=== PATIENT | female | born 1965 | race African-American/Black ===

== ENCOUNTER 2017-06-08 10:40 | Inpatient (IN) | payer OTHER ==
[2017-06-08 11:00] VITALS: BMI 29.2
--- NOTE | 2017-06-08 13:04 | HP ---
COWS - Scale Resting Pulse: 1= [place] 81-100 Sweatin= Chills/Flushing Restless Observation: 0= Sits Still Pupil Size: 2= Moderately Dilated Bone or Joint Aches: 4=Acute Joint/Muscle Pain Runny Nose/ Eye Tearin= Nasal Congestion GI Upset > 30mins: 1= Stomach Cramp Tremor Observation: 2= Slight Tremor Visible Yawning Observation: 1= 1-2x During Session Anxiety or Irritability: 2=Irritable/Anxious Goose Flesh Skin: 0=Smooth Skin COWS Score: 15 Admission ROS S - HPI Chief Complaint: DETOX TX FOR TRAMADOL, FIORICET/W CODIENE DEPENDENCE. STATES "I DON'T WANT MY LIFE TO CONTINUE THIS WAY". Allergies/Adverse Reactions: Allergies Allergy/AdvReac Type Severity Reaction Status Date / Time No Known Allergies Allergy Verified 06/08/17 12:14 History of Present Illness: 51 Y/O WOMAN WITH A HX OF TRAMADOL, FIORICET WITH CODEINE DEPENDENCE SEEKING DETOX TX. PT STATES USE OF FIORICET X 10 YRS AND FIORICET WITH CODIENE FOR PAST 8 YRS FOR MIGRAINE HEADACHE BUT FOUND HERSELF MORE DEPENDENT ON THESE WITH NO RELIEF. RATHER, EXPERIENCING INCREASED, TIREDNESS, HOT/COLD CHILLS, RESTLESSNESS AND URGE TO CONTINUE USING IT. Exam Limitations: No Limitations - Ebola screening Have you traveled outside of the country in the last 21 days: No Have you had contact with anyone from an Ebola affected area: No Have you been sick,other than usual withdrawal symptoms: No Do you have a fever: No - Review of Systems Constitutional: Chills, Diaphoresis, Loss of Appetite, Night Sweats, Changes in sleep EENT: reports: Blurred Vision, Tearing, Nose Congestion Respiratory: reports: No Symptoms reported Cardiac: reports: Chest Pain, Lightheadedness, Palpitations, Chest Tightness GI: reports: Constipated, Diarrhea, Nausea, Vomiting, Indigestion, Abdominal cramping : reports: No Symptoms Reported Musculoskeletal: reports: Back Pain, Joint Pain, Muscle Pain Integumentary: reports: No Symptoms Reported Neuro: reports: Headache (HX MIGRAINES), Tremors, Dizziness Endocrine: reports: No Symptoms Reported Hematology: reports: Anemia (RESOLVED AFTER RADIO FREQUENCY ABLATION) Psychiatric: reports: Orientated x3, Anxious, Depressed Other Systems: Reviewed and Negative Patient History - Patient Medical History Hx Anemia: Yes (NO MEDS) Hx Asthma: No Hx Chronic Obstructive Pulmonary Disease (COPD): No Hx Cardiac Disorders: No Hx Hypertension: No Hx Hypercholesterolemia: Yes (ON/OFF ON SIMVASTATIN) HX Cerebrovascular Accident: No Hx Seizures: No Hx Diabetes: No Hx Gastrointestinal Disorders: Yes (DYSPEPSIA SOMETIMES) Hx Genitourinary Disorders: No Hx Sexually Transmitted Disorders: No Hx Renal Disease (ESRD): No Hx Thyroid Disease: No Hx Human Immunodeficiency Virus (HIV): No (NEGATIVE HX) Hx Hepatitis C: No Hx Depression: Yes (ON MED) Hx Suicide Attempt: No (DENIES) Hx Schizophrenia: No Other Medical History: HX THROAT POLYP - Patient Surgical History Past Surgical History: Yes Hx Abdominal Surgery: Yes (fibroid sx in 2009 radiofrequency ablation) Hx Section: No Hx Hysterectomy: No Other Surgical History: Rectal sx in 2010 - PPD History Previous Implant?: Yes Documented Results: Positive w/o proof Implanted On Prior [facility] Admission?: No - Reproductive History Last Menstrual Period: 06/01/17 Patient : No - Smoking Cessation Smoking history: Never smoked - Substance & Tx. History Hx Alcohol Use: No (DENIES) Hx Substance Use: Yes (TRAMADOL/CODEINE) Substance Use Type: Opiates Hx Substance Use Treatment: No (DENIES) - Substances Abused FIORCET WITH CODEINE Route: Oral Frequency: Daily Amount used: 6 PILLS Age of first use: 41 Date of Last Use: 06/08/17 TRAMADOL Route: Oral Frequency: Daily Amount used: 6 PILLS Age of first use: 41 Date of Last Use: 06/08/17 Family Disease History - Family Disease History Family Disease History: Diabetes: Mother (BORDERLINE DM;CANCER SURVIVOR-ALIVE), CA: Father (CANCER SURVIVOR), Mother, Other: Sister (HTN) Admission Physical Exam BHS - Vital Signs Vital Signs: Vital Signs - 24 hr 06/08/17 10:56 Temperature 97.8 F Pulse Rate 96 H Respiratory 18 Rate Blood Pressure 135/87 - Physical General Appearance: Yes: Moderate Distress, Irritable, Anxious HEENTM: Yes: EOMI, Normocephalic, MICHAEL, Pharynx Normal Respiratory: Yes: Chest Non-Tender, Lungs Clear, Normal Breath Sounds, No Respiratory Distress Neck: Yes: No masses,lesions,Nodules, Supple, Trachea in good position Breast: Yes: Breast Exam Deferred Cardiology: Yes: Regular Rhythm, Regular Rate, S1, S2 Abdominal: Yes: Normal Bowel Sounds, Non Tender, Soft Genitourinary: Yes: Other (N/C) Back: Yes: Within Normal Limits Musculoskeletal: Yes: full range of Motion, Gait Steady Extremities: Yes: Normal Range of Motion, Non-Tender Neurological: Yes: final application reviewer II-XII NML intact, Fully Oriented, Alert Integumentary: Yes: Dry, Warm Lymphatic: Yes: Within Normal Limits - Diagnostic (1) Opioid dependence with withdrawal Current Visit: Yes Status: Acute (2) Arthritis of knee, degenerative Current Visit: Yes Status: Chronic Qualifiers: Osteoarthritis type: unspecified (3) History of migraine headaches Current Visit: Yes Status: Chronic (4) Hypercholesterolemia Current Visit: Yes Status: Chronic Cleared for Admission [facility] - Detox or Rehab [facility] Level of Care: Medically Managed Detox Regimen/Protocol: Methadone [facility] Breath Alcohol Content Breath Alcohol Content: 0 Urine Pregancy Test - Result Urine Test Results: Negative- NO Line Present Urine Drug Screen - Results Drug Screen Negative: No Urine Drug Screen Results: OPI-Opiates, BAR-Barbiturates
[2017-06-08] MEDS ORDERED: MAGNESIUM CITRATE 300 ML BOTTLE PO PRN (13:37)
[2017-06-08] MEDS ORDERED: MAG HYDROX/AL HYDROX/SIMETH 30 ML UNIT-DOSE CUP PO PRN (13:37)
[2017-06-08] MEDS ORDERED: MENTHOL/PHENOL 1 EACH UD MM PRN (13:37)
[2017-06-08] MEDS ORDERED: P-EPHED 60MG/TRIPROLIDI 2.5MG TABLET PO PRN (13:37)
[2017-06-08] MEDS ORDERED: guaiFENesin/D-METHORPHAN HB 10 ML UNIT-DOSE CUPS PO PRN (13:37)
[2017-06-08] MEDS ORDERED: LOPERAMIDE HCL 2 MG CAPSULE PO PRN (13:37)
[2017-06-08] MEDS ORDERED: MAGNESIUM HYDROX 2400MG/30ML ORAL SUSPENSION 30 ML CUP PO PRN (13:37)
[2017-06-08] MEDS ORDERED: METHADONE HCL 10 MG TABLET (FOR DETOX USE ONLY) PO ONE ×2 (14:07→23:00)
--- NOTE | 2017-06-08 14:44 | CONSULT ---
[facility] Psychiatric Consult - Data Date of interview: 06/08/17 Admission source: [facility] Identifying data: This is 51 years old female with psychiatric hospitalization history intoxicated withy Opioids Substance Abuse History: Drug Screen Negative: No. Urine Drug Screen Results: OPI-Opiates, BAR-Barbiturates- Smoking Cessation. Smoking history: Never smoked. - Substance & Tx. History. Hx Alcohol Use: No (DENIES). Hx Substance Use: Yes (TRAMADOL/CODEINE). Substance Use Type: Opiates. Hx Substance Use Treatment: No (DENIES). - Substances Abused. FIORCET WITH CODEINE. Route: Oral. Frequency: Daily. Amount used: 6 PILLS. Age of first use: 41. Date of Last Use: 06/08/17. TRAMADOL. Route: Oral. Frequency: Daily. Amount used : 6 PILLS. Age of first use: 41. Date of Last Use: 06/08/17 Medical History: Migraine, Knee arthritis, Hyper cholesterolemia Psychiatric History: Patient reports history of anxiety and depression, reports only psychiatric admission on morem then 10 uyears ago, reports taking priorm to admission: Zoloft 200mg poqd Physical/Sexual Abuse/Trauma History: Denies Additional Comment: Drug Screen Negative: No. Urine Drug Screen Results: OPI- Opiates, BAR-Barbiturates Mental Status Exam - Mental Status Exam Alert and Oriented to: Person Cognitive Function: Fair Patient Appearance: Unkempt Mood: Apprehensive Affect: Mood Congruent Patient Behavior: Cooperative Speech Pattern: Delayed Voice Loudness: Normal Thought Process: Goal Oriented Thought Disorder: Being Controlled Hallucinations: Denies Suicidal Ideation: Denies Homicidal Ideation: Denies Insight/Judgement: Fair Sleep: Difficulty falling asleep Appetite: Weight gain Muscle strength/Tone: Normal Gait/Station: Normal Additional Comments: Zoloft 200mg poqd Psychiatric Findings - Problem List ([place] 1, 2,3) (1) Opioid dependence with withdrawal Current Visit: Yes Status: Acute (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
[2017-06-08] MEDS: diazePAM 5 MG TABLET PO PRN ×2 (15:21→22:37)
[2017-06-08 17:04] LABS: URINE APPEARANCE CLEAR; URINE BILIRUBIN NEGATIVE (NEGATIVE); URINE BLOOD 1+ (NEGATIVE); URINE COLOR STRAW; URINE GLUCOSE (UA) NEGATIVE (NEGATIVE); URINE KETONE NEGATIVE (NEGATIVE); URINE LEUK ESTERASE NEGATIVE (NEGATIVE); URINE NITRITE NEGATIVE (NEGATIVE); URINE PROTEIN NEGATIVE (NEGATIVE); URINE UROBILINOGEN NEGATIVE mg/dL (0.2-1.0)
[2017-06-08 17:09] LABS: URINE BACTERIA RARE /hpf (NONE SEEN); URINE RBC <1 /hpf (0-3); URINE WBC <1 /hpf (3-5)
[2017-06-08] MEDS: ACETAMINOPHEN 325 MG TABLET (FP) PO PRN (17:36)
[2017-06-08] MEDS: SUMAtriptan SUCCINATE 50 MG TABLET PO PRN (21:25)
[2017-06-08] MEDS ORDERED: ATORVASTATIN CA 20 MG TABLET (FP) PO SCH (22:00)
[2017-06-08] MEDS: THIAMINE HCL 100 MG TABLET (FP) PO SCH (22:37)
[2017-06-08] MEDS: diphenhydrAMINE HCL 50 MG CAPSULE PO PRN (22:37)
[2017-06-08] MEDS: ATORVASTATIN CA 10 MG TABLET (FP) PO SCH (22:37)
[2017-06-09] MEDS: ACETAMINOPHEN 325 MG TABLET (FP) PO PRN ×3 (05:46→22:29)
[2017-06-09] MEDS: diazePAM 5 MG TABLET PO PRN ×3 (05:49→20:40)
--- NOTE | 2017-06-09 08:44 | PN ---
[facility] Progress Note Note: Psychiatry Attending's note (coverage) : Met with patient on 06/08/17 to discuss medications. Nurse had called to request order for zoloft 200 mg/daily. Chart reviewed.Dr Cm's note is appreciated. Treatment plan confirms intent to restart zoloft at dose indicated above. Side effects/benefits were discussed with the patient (in the presence of a female staff). Ms Herr endorses consistent adherence to her medications.Seems reliable. Recent pharmacy claims are revisited. Noted script for zoloft 100 mg po bid (filled on 05/15/17 at [facility] # [id number]). Intervention : zoloft 100 mg po bid (patient's request).Ordered.
[2017-06-09] MEDS ORDERED: METHADONE HCL 10 MG TABLET (FOR DETOX USE ONLY) PO ONE (10:00)
[2017-06-09 10:27] LABS: MCH 27.9 pg (25.7-33.7); MCHC 33.1 g/dl (32.0-36.0); MEAN CELL VOLUME 84.3 fl (80-96); MEAN PLT VOLUME 9.9 fl (7.5-11.1); PLATELET COUNT 169 K/MM3 (134-434); RDW 14.3 % (11.6-15.6); WHITE BLOOD COUNT 4.4 K/mm3 (4.0-10.0)
[2017-06-09] MEDS: SERTRALINE HCL 50 MG TABLET (FP) PO SCH ×2 (11:05→22:29)
[2017-06-09] MEDS: PRENATAL VITAMINS W/ FOLIC ACID TABLET (FP) PO SCH (11:05)
--- NOTE | 2017-06-09 11:27 | PN ---
[facility] COWS - Scale Resting Pulse: 1= AR 81-100 Sweatin=Flushed/Facial Moisture Restless Observation: 1= Difficult to Sit Still Pupil Size: 0= Normal to Room Light Bone or Joint Aches: 2= Severe Diffuse Aches Runny Nose/ Eye Tearin= Nasal Congestion GI Upset > 30mins: 0= None Tremor Observation of Outstretched Hands: 1= Tremor Thomas, Not Seen Yawning Observation: 1= 1-2x During Session Anxiety or Irritability: 1=Feels Anxious/Irritable Goose Flesh Skin: 3=Piloerection COWS Score: 13 BHS Progress Note (SOAP) Subjective: sweats mild shakes interrupted sleep agitation Objective: 06/09/17 11:25 Vital Signs Temperature 98.2 F 06/09/17 10:00 Pulse Rate 90 06/09/17 10:00 Respiratory Rate 18 06/09/17 10:00 Blood Pressure 125/85 06/09/17 10:00 O2 Sat by Pulse Oximetry (%) Laboratory Tests 06/08/17 06/09/17 14:00 06:30 WBC 4.4 RBC 4.62 Hgb 12.9 Hct 38.9 MCV 84.3 MCH 27.9 MCHC 33.1 RDW 14.3 Plt Count 169 MPV 9.9 Urine Color Straw Urine Appearance Clear Urine pH 5.0 Ur Specific [place] <= 1.005 Urine Protein Negative Urine Glucose (UA) Negative Urine Ketones Negative Urine Blood 1+ H Urine Nitrite Negative Urine Bilirubin Negative Urine Urobilinogen Negative Ur Leukocyte Esterase Negative Urine RBC <1 Urine WBC <1 Ur Epithelial Cells Rare Urine Bacteria Rare labs pending awake/alert ambulating no acute distress Assessment: 06/09/17 11:26 withdrawal sx Plan: continue detox increase fluids labs pending
[2017-06-09 11:44] LABS: ALBUMIN 3.2 g/dl (3.4-5.0); ALK PHOS 76 U/L (45-117); ANION GAP 5 (8-16); BILIRUBIN,TOTAL 0.2 mg/dL (0.2-1.0); CALCIUM 8.6 mg/dL (8.5-10.1); CO2 32 mmol/L (21-32); CREATININE 0.8 mg/dL (0.55-1.02); GLUCOSE,RANDOM 79 mg/dL (74-106); SGOT/AST 24 U/L (15-37); SGPT/ALT 39 U/L (12-78); TOT PROT 6.8 g/dl (6.4-8.2)
[2017-06-09] MEDS: IBUPROFEN 400 MG TABLET (FP) PO PRN ×2 (12:46→20:38)
--- NOTE | 2017-06-09 14:24 | EKG ---
Test Reason : Blood Pressure : / mmHG Vent. Rate : 071 BPM Atrial Rate : 071 BPM P-R Int : 154 ms QRS Dur : 086 ms QT Int : 380 ms P-R-T Axes : 059 019 008 degrees QTc Int : 412 ms NORMAL SINUS RHYTHM NORMAL ECG NO PREVIOUS ECGS AVAILABLE REPEAT EKG IF CLINICALLY INDICATED Confirmed by JN MATHUR MD ([id number]) on 06/09/2017 2:24:03 PM Referred By: Timmy Pantoja Confirmed By:JN MATHUR MD
[2017-06-09 14:42] LABS: SICKLE CELL SCREEN NEGATIVE (NEGATIVE)
[2017-06-09] MEDS: SUMAtriptan SUCCINATE 50 MG TABLET PO PRN (14:42)
--- NOTE | 2017-06-09 16:43 | PN ---
B[facility] Progress Note Note: migraine headache will give imitrex 50 mgs po
[2017-06-09] MEDS ORDERED: SUMAtriptan SUCCINATE 50 MG TABLET PO ONE (16:45)
[2017-06-09] MEDS: diphenhydrAMINE HCL 50 MG CAPSULE PO PRN (22:28)
[2017-06-09] MEDS: THIAMINE HCL 100 MG TABLET (FP) PO SCH (22:29)
[2017-06-09] MEDS: ATORVASTATIN CA 10 MG TABLET (FP) PO SCH (22:29)
[2017-06-10] MEDS: IBUPROFEN 400 MG TABLET (FP) PO PRN (04:58)
[2017-06-10] MEDS: ACETAMINOPHEN 325 MG TABLET (FP) PO PRN ×3 (08:21→20:27)
[2017-06-10] MEDS ORDERED: cloNIDine HCL 0.1 MG TABLET PO ONE ×2 (09:57→11:27)
[2017-06-10] MEDS ORDERED: TRIMETHOBENZAMIDE HCL 300 MG CAPSULE PO PRN (09:57)
[2017-06-10] MEDS ORDERED: METHADONE HCL 5 MG TABLET (FOR DETOX USE ONLY) PO ONE (10:00)
[2017-06-10] MEDS: diazePAM 5 MG TABLET PO PRN ×3 (10:06→22:29)
[2017-06-10] MEDS: PRENATAL VITAMINS W/ FOLIC ACID TABLET (FP) PO SCH (10:07)
[2017-06-10] MEDS: SERTRALINE HCL 50 MG TABLET (FP) PO SCH ×2 (10:07→22:27)
[2017-06-10] MEDS: IBUPROFEN 600 MG TABLET (FP) PO PRN ×2 (10:12→16:33)
--- NOTE | 2017-06-10 11:18 | PN ---
[facility] COWS - Scale Resting Pulse: 2= ID [id number] Sweatin=Flushed/Facial Moisture Restless Observation: 1= Difficult to Sit Still Pupil Size: 0= Normal to Room Light Bone or Joint Aches: 2= Severe Diffuse Aches Runny Nose/ Eye Tearin= Runny Nose/Eyes GI Upset > 30mins: 1= Stomach Cramp Tremor Observation of Outstretched Hands: 2= Slight Tremor Visible Yawning Observation: 2= >3x During Session Anxiety or Irritability: 2=Irritable/Anxious Goose Flesh Skin: 0=Smooth Skin COWS Score: 16 BHS Progress Note (SOAP) Subjective: sweats shakes headache anxiety interrupted sleep Objective: 06/10/17 11:16 Vital Signs Temperature 99.1 F 06/10/17 10:54 Pulse Rate 109 H 06/10/17 10:54 Respiratory Rate 18 06/10/17 10:54 Blood Pressure 150/87 06/10/17 10:54 O2 Sat by Pulse Oximetry (%) Laboratory Tests 06/08/17 06/09/17 06/09/17 14:00 06:30 06:30 WBC 4.4 RBC 4.62 Hgb 12.9 Hct 38.9 MCV 84.3 MCH 27.9 MCHC 33.1 RDW 14.3 Plt Count 169 MPV 9.9 Sickle Cell Screen Negative Sodium 142 Potassium 4.2 Chloride 105 Carbon Dioxide 32 Anion Gap 5 L BUN 14 Creatinine 0.8 Creat Clearance w eGFR > 60 Random Glucose 79 Calcium 8.6 Total Bilirubin 0.2 AST 24 ALT 39 Alkaline Phosphatase 76 Total Protein 6.8 Albumin 3.2 L Urine Color Straw Urine Appearance Clear Urine pH 5.0 Ur Specific [place] <= 1.005 Urine Protein Negative Urine Glucose (UA) Negative Urine Ketones Negative Urine Blood 1+ H Urine Nitrite Negative Urine Bilirubin Negative Urine Urobilinogen Negative Ur Leukocyte Esterase Negative Urine RBC <1 Urine WBC <1 Ur Epithelial Cells Rare Urine Bacteria Rare RPR Titer 06/09/17 06:30 WBC RBC Hgb Hct MCV MCH MCHC RDW Plt Count MPV Sickle Cell Screen Sodium Potassium Chloride Carbon Dioxide Anion Gap BUN Creatinine Creat Clearance w eGFR Random Glucose Calcium Total Bilirubin AST ALT Alkaline Phosphatase Total Protein Albumin Urine Color Urine Appearance Urine pH Ur Specific [place] Urine Protein Urine Glucose (UA) Urine Ketones Urine Blood Urine Nitrite Urine Bilirubin Urine Urobilinogen Ur Leukocyte Esterase Urine RBC Urine WBC Ur Epithelial Cells Urine Bacteria RPR Titer Nonreactive awake/alert ambulating no acute distress Assessment: 06/10/17 11:17 withdrawal sx Plan: continue detox increase fluids motrin 600mg ice pack prn
[2017-06-10] MEDS: diphenhydrAMINE HCL 50 MG CAPSULE PO PRN (22:24)
[2017-06-10] MEDS: THIAMINE HCL 100 MG TABLET (FP) PO SCH (22:27)
[2017-06-10] MEDS: ATORVASTATIN CA 10 MG TABLET (FP) PO SCH (22:27)
[2017-06-10] MEDS: cloNIDine HCL 0.1 MG TABLET PO SCH (22:27)
[2017-06-10] MEDS: SUMAtriptan SUCCINATE 50 MG TABLET PO PRN (22:28)
[2017-06-11] MEDS: IBUPROFEN 600 MG TABLET (FP) PO PRN ×3 (04:05→22:36)
[2017-06-11] MEDS: diazePAM 5 MG TABLET PO PRN (07:45)
[2017-06-11] MEDS: ACETAMINOPHEN 325 MG TABLET (FP) PO PRN ×2 (07:46→14:13)
[2017-06-11] MEDS ORDERED: METHADONE HCL 5 MG TABLET (FOR DETOX USE ONLY) PO ONE (10:00)
[2017-06-11] MEDS: SERTRALINE HCL 50 MG TABLET (FP) PO SCH ×2 (10:32→22:36)
[2017-06-11] MEDS: cloNIDine HCL 0.1 MG TABLET PO SCH ×2 (10:32→22:36)
[2017-06-11] MEDS: PRENATAL VITAMINS W/ FOLIC ACID TABLET (FP) PO SCH (10:33)
--- NOTE | 2017-06-11 12:01 | PN ---
BHS Progress Note (SOAP) Subjective: sweats mild headache interrupted sleep Objective: 06/11/17 11:59 Vital Signs Temperature 98.1 F 06/11/17 09:40 Pulse Rate 111 H 06/11/17 09:40 Respiratory Rate 20 06/11/17 09:40 Blood Pressure 134/91 06/11/17 09:40 O2 Sat by Pulse Oximetry (%) Laboratory Tests 06/08/17 06/09/17 06/09/17 14:00 06:30 06:30 WBC 4.4 RBC 4.62 Hgb 12.9 Hct 38.9 MCV 84.3 MCH 27.9 MCHC 33.1 RDW 14.3 Plt Count 169 MPV 9.9 Sickle Cell Screen Negative Sodium 142 Potassium 4.2 Chloride 105 Carbon Dioxide 32 Anion Gap 5 L BUN 14 Creatinine 0.8 Creat Clearance w eGFR > 60 Random Glucose 79 Calcium 8.6 Total Bilirubin 0.2 AST 24 ALT 39 Alkaline Phosphatase 76 Total Protein 6.8 Albumin 3.2 L Urine Color Straw Urine Appearance Clear Urine pH 5.0 Ur Specific [place] <= 1.005 Urine Protein Negative Urine Glucose (UA) Negative Urine Ketones Negative Urine Blood 1+ H Urine Nitrite Negative Urine Bilirubin Negative Urine Urobilinogen Negative Ur Leukocyte Esterase Negative Urine RBC <1 Urine WBC <1 Ur Epithelial Cells Rare Urine Bacteria Rare RPR Titer 06/09/17 06:30 WBC RBC Hgb Hct MCV MCH MCHC RDW Plt Count MPV Sickle Cell Screen Sodium Potassium Chloride Carbon Dioxide Anion Gap BUN Creatinine Creat Clearance w eGFR Random Glucose Calcium Total Bilirubin AST ALT Alkaline Phosphatase Total Protein Albumin Urine Color Urine Appearance Urine pH Ur Specific [place] Urine Protein Urine Glucose (UA) Urine Ketones Urine Blood Urine Nitrite Urine Bilirubin Urine Urobilinogen Ur Leukocyte Esterase Urine RBC Urine WBC Ur Epithelial Cells Urine Bacteria RPR Titer Nonreactive awake/alert ambulating no acute distress Assessment: 06/11/17 12:00 withdrawal sx Plan: continue detox increase fluids
[2017-06-11] MEDS: SUMAtriptan SUCCINATE 50 MG TABLET PO PRN (17:17)
[2017-06-11] MEDS: hydrOXYzine PAMOATE 50 MG CAPSULE (FP) PO PRN (22:35)
[2017-06-11] MEDS: ATORVASTATIN CA 10 MG TABLET (FP) PO SCH (22:36)
[2017-06-11] MEDS: THIAMINE HCL 100 MG TABLET (FP) PO SCH (22:36)
[2017-06-12] MEDS: diphenhydrAMINE HCL 50 MG CAPSULE PO PRN ×2 (02:02→22:43)
[2017-06-12] MEDS: ACETAMINOPHEN 325 MG TABLET (FP) PO PRN (02:02)
[2017-06-12] MEDS: IBUPROFEN 600 MG TABLET (FP) PO PRN ×3 (06:00→22:44)
[2017-06-12] MEDS: hydrOXYzine PAMOATE 50 MG CAPSULE (FP) PO PRN ×2 (06:01→11:05)
[2017-06-12] MEDS ORDERED: METHADONE HCL 10 MG TABLET (FOR DETOX USE ONLY) PO ONE (10:00)
[2017-06-12] MEDS: PRENATAL VITAMINS W/ FOLIC ACID TABLET (FP) PO SCH (11:03)
[2017-06-12] MEDS: SERTRALINE HCL 50 MG TABLET (FP) PO SCH ×2 (11:03→22:44)
[2017-06-12] MEDS: cloNIDine HCL 0.1 MG TABLET PO SCH ×2 (11:04→22:43)
--- NOTE | 2017-06-12 12:47 | PN ---
BHS Progress Note (SOAP) Subjective: feeling much better Objective: 06/12/17 12:46 Vital Signs Temperature 97.7 F 06/12/17 10:00 Pulse Rate 99 H 06/12/17 10:00 Respiratory Rate 20 06/12/17 10:00 Blood Pressure 135/64 06/12/17 10:00 O2 Sat by Pulse Oximetry (%) awake/alert ambulating no acute distress Assessment: 06/12/17 12:46 withdrawal sx Plan: continue detox increase fluids d/c in am
[2017-06-12] MEDS: SUMAtriptan SUCCINATE 50 MG TABLET PO PRN (13:31)
[2017-06-12] MEDS: ATORVASTATIN CA 10 MG TABLET (FP) PO SCH (22:44)
[2017-06-12] MEDS: THIAMINE HCL 100 MG TABLET (FP) PO SCH (22:44)
[2017-06-13] MEDS: hydrOXYzine PAMOATE 50 MG CAPSULE (FP) PO PRN (02:23)
[2017-06-13] MEDS: ACETAMINOPHEN 325 MG TABLET (FP) PO PRN ×2 (02:23→07:51)
[2017-06-13] MEDS ORDERED: METHADONE HCL 5 MG TABLET (FOR DETOX USE ONLY) PO ONE (06:00)
[2017-06-13 06:27] VITALS: BP 141/79; PULSE 78; TEMP 96.9
--- NOTE | 2017-06-13 09:08 | DS ---
[facility] Detox Discharge Summary Admission Date: 06/08/17 Discharge Date: 06/13/17 - History Present History: Opioid Dependence Pertinent Past History: ARTHRITIS BOTH KNEES MIGRAINE HEADACHE HYPERCHOLESTEROLEMIA - Physical Exam Results Vital Signs: Vital Signs Temperature 96.9 F L 06/13/17 06:26 Pulse Rate 78 06/13/17 06:26 Respiratory Rate 18 06/13/17 06:26 Blood Pressure 141/79 06/13/17 06:26 O2 Sat by Pulse Oximetry (%) Pertinent Admission Physical Exam Findings: WITHDRAWAL SYMPTOM - Treatment Hospital Course: Detox Protocol Followed, Detoxed Safely, Responded well, Discharged Condition Good Patient has Accepted a Rehab Referral to: FOLLOW UP WITH AFTER CARE PROGRAM ARRANGEMENT - Medication Discharge Medications: Ambulatory Orders Diclofenac Sodium 50 mg PO TID PRN 06/08/17 Sertraline HCl [Zoloft -] 200 mg PO DAILY 06/08/17 Simvastatin [Zocor -] 20 mg PO HS #30 tab 06/13/17 Sumatriptan Succinate [Imitrex -] 50 mg PO ONCE PRN #10 tablet 06/13/17 - Diagnosis (1) Opioid dependence with withdrawal Current Visit: Yes Status: Acute (2) Arthritis of knee, degenerative Current Visit: Yes Status: Chronic Qualifiers: Osteoarthritis type: unspecified (3) History of migraine headaches Current Visit: Yes Status: Chronic (4) Hypercholesterolemia Current Visit: Yes Status: Chronic - AMA Did Patient Leave Against Medical Advice: No
== END 2017-06-13 09:14 | disposition home or self-care (01) | DRG 773 ==
LOC: YASAS 10:40 → Y6N 13:54
PROVIDERS: ADMIT Internal Medicine; ATTEND Internal Medicine
PROC: HZ2ZZZZ Detoxification Services for Substance Abuse Treatment (ICD-10-PCS; principal; 2017-06-08)
DX: F11.23 Opioid dependence with withdrawal (principal); F11.288 Opioid dependence with other opioid-induced disorder; E78.00 Pure hypercholesterolemia, unspecified; M17.0 Bilateral primary osteoarthritis of knee; G43.909 Migraine, unspecified, not intractable, without status migrainosus
CPT/HCPCS: 36415; 71020-TC; 80053; 81003; 81015; 85027; 85660; 86593; 93005; 93010